=== PATIENT | female | born 1995 | race Caucasian/White ===

== ENCOUNTER 2016-10-01 18:52 | Emergency (ER) | payer OTHER ==
[2016-10-01] MEDS ORDERED: NS 1,000 ML IV ONE (19:21)
--- NOTE | 2016-10-01 19:21 | EDPHY ---
H & P Stated Complaint: N/V x 3 days;can't keep anxiety meds down Time Seen by Provider: 10/01/16 19:20 HPI/ROS: CHIEF COMPLAINT: Intractable nausea and vomiting HISTORY OF PRESENT ILLNESS: The patient presents to the ED with a 3 day history of intractable nausea and vomiting. The patient denies diarrhea. She denies cough or congestion. She did have an upper respiratory sinus type infection earlier in the month. The patient does have a remote history of an eating disorder but denies any ongoing problems with that condition. The patient does have a history of anxiety which she takes Zoloft for in the morning and Ativan as needed at night. She has been unable to keep these medications down over the past 3 days. The patient denies significant drug or alcohol use. She denies any complaints of back pain or dysuria. She has a mild epigastric pain. REVIEW OF SYSTEMS: A comprehensive 10 point review of systems is otherwise negative aside from elements mentioned in the history of present illness. Source: Patient Exam Limitations: No limitations - Personal History LMP (Females 10-55): Now Current Tetanus Diphtheria and Acellular Pertussis (TDAP): Yes - Medical/Surgical History Hx Asthma: No Hx Chronic Respiratory Disease: No Hx Diabetes: No Hx Cardiac Disease: No Hx Renal Disease: No Hx Cirrhosis: No Hx Alcoholism: No Hx HIV/AIDS: No Hx Splenectomy or Spleen Trauma: No Other PMH: TM tubes/EATING DISORDER. anxiety - Social History Smoking Status: Never smoked - Physical Exam Exam: General Appearance: Alert, no distress Eyes: Pupils equal and round no pallor or injection ENT, Mouth: Dry mucous membranes Respiratory: There are no retractions, lungs are clear to auscultation Cardiovascular: Slight tachycardia Gastrointestinal: Minimal epigastric tenderness Neurological: A&O, normal motor function, normal sensory exam, normal cranial nerves Skin: Warm and dry, no rashes Musculoskeletal: Neck is supple nontender Extremities: symmetrical, full range of motion Psychiatric: Patient is oriented X 3, there is no agitation Constitutional: Initial Vital Signs Heart Rate 106 H 10/01/16 18:53 Respiratory Rate 18 10/01/16 18:53 Blood Pressure 146/100 H 10/01/16 18:53 O2 Sat (%) 95 10/01/16 18:53 O2 Delivery Mode Room Air Allergies/Adverse Reactions: acetaminophen [From Tylenol] Allergy (Intermediate, Verified 10/01/16 18:56) hives/vomiting Home Medications: Medication Instructions Recorded Bcp 10/01/16 LORazepam [Ativan (*)] 1 mg PO 10/01/16 Propranolol HCl [Inderal 20mg (*)] 20 mg PO 10/01/16 Sertraline HCl [Zoloft 50mg (*)] 50 mg PO DAILY 10/01/16 Medical Decision Making ED Course/Re-evaluation: The patient presents to the emergency department with acute nausea and vomiting x3 days. The patient does have evidence of mild dehydration. She had an IV established. She received a L of normal saline. She received IV Zofran and 1 mg of IV Ativan. The patient's laboratory studies are within normal limits. The patient did have serial examinations in the ED by myself over 2 hour period. The patient had marked improvement of her symptoms. The patient will be discharged home with a prescription for Zofran. She is instructed to return to the ED for severe abdominal pain, intractable vomiting, fever or other concerns. Differential Diagnosis: Differential diagnosis considered includes cholecystitis, gastroenteritis, pancreatitis, dehydration, metabolic abnormality - Data Points Laboratory Results: Laboratory Results 10/01/16 19:05 10/01/16 19:05 10/01/16 19:05 WBC 7.51 10^3/uL (3.80-9.50) RBC 4.77 10^6/uL (4.18-5.33) Hgb 14.1 g/dL (12.6-16.3) Hct 42.4 % (38.0-47.0) MCV 88.9 fL (81.5-99.8) MCH 29.6 pg (27.9-34.1) MCHC 33.3 g/dL (32.4-36.7) RDW 13.9 % (11.5-15.2) Plt Count 306 10^3/uL (150-400) MPV 10.5 fL (8.7-11.7) Neut % (Auto) 57.8 % (39.3-74.2) Lymph % (Auto) 27.7 % (15.0-45.0) Dale % (Auto) 9.5 % (4.5-13.0) Eos % (Auto) 3.6 % (0.6-7.6) Baso % (Auto) 1.1 % (0.3-1.7) Nucleat RBC Rel Count 0.0 % (0.0-0.2) Absolute Neuts (auto) 4.35 10^3/uL (1.70-6.50) Absolute Lymphs (auto) 2.08 10^3/uL (1.00-3.00) Absolute Monos (auto) 0.71 10^3/uL (0.30-0.80) Absolute Eos (auto) 0.27 10^3/uL (0.03-0.40) Absolute Basos (auto) 0.08 10^3/uL (0.02-0.10) Absolute Nucleated RBC 0.00 10^3/uL (0-0.01) Immature Gran % 0.3 % (0.0-1.1) Immature Gran # 0.02 10^3/uL (0.00-0.10) Sodium 144 mEq/L (134-144) Potassium 3.4 L mEq/L (3.5-5.2) Chloride 105 mEq/L (97-110) Carbon Dioxide 24 mEq/l (22-31) Anion Gap 15 mEq/L (8-16) BUN 13 mg/dL (7-23) Creatinine 0.8 mg/dL (0.6-1.0) Estimated GFR > 60 Glucose 105 H mg/dL (70-100) Calcium 9.8 mg/dL (8.5-10.4) Total Bilirubin 0.7 mg/dL (0.1-1.4) Conjugated Bilirubin 0.3 mg/dL (0.0-0.5) Unconjugated Bilirubin 0.4 mg/dL (0.0-1.1) AST 29 IU/L (14-46) ALT 36 IU/L (9-52) Alkaline Phosphatase 112 IU/L (38-126) Total Protein 8.2 g/dL (6.3-8.2) Albumin 4.1 g/dL (3.5-5.0) Lipase 100.0 IU/L (23-300) Beta HCG, Qual NEGATIVE Medications Given: Discontinued Medications Sodium Chloride (Ns) 1,000 mls @ 0 mls/hr IV ONCE ONE PRN Reason: Wide Open Stop: 10/01/16 19:22 Last Admin: 10/01/16 19:26 Dose: 1,000 mls Lorazepam (Ativan Injection) 1 mg IVP EDNOW ONE Stop: 10/01/16 19:26 Last Admin: 10/01/16 19:34 Dose: 1 mg Departure - Departure Disposition: Home, Routine, Self-Care Clinical Impression: Acute gastroenteritis Condition: Good Instructions: Acute Nausea and Vomiting (ED) Additional Instructions: 1. Zofran as needed for nausea. 2. Please return to the ED for markedly worsening symptoms or other concerns. 3. Take Ibuprofen or Motrin 600 mg by mouth three times a day.
[2016-10-01] MEDS ORDERED: LORazepam 2 MG/ML INJ IVP ONE (19:25)
[2016-10-01 19:26] LABS: % IMMATURE GRANULYOCYTES 0.3 % (0.0-1.1); ABSOLUTE IMMATURE GRANULOCYTES 0.02 10^3/uL (0.00-0.10); ADD DIFF? NO; ADD MORPH? NO; ADD SCAN? NO; ATYPICAL LYMPHOCYTE FLAG 30 (0-99); FRAGMENT RBC FLAG 0 (0-99); HEMATOCRIT 42.4 % (38.0-47.0); HEMOGLOBIN 14.1 g/dL (12.6-16.3); LEFT SHIFT FLG 0 (0-99); LIPEMIA HEMOLYSIS FLAG 80 (0-99); MEAN CELL HEMOGLOBIN 29.6 pg (27.9-34.1); MEAN CELL HEMOGLOBIN CONCENTR. 33.3 g/dL (32.4-36.7); MEAN CELL VOLUME 88.9 fL (81.5-99.8); MEAN PLATELET VOLUME 10.5 fL (8.7-11.7); PLATELET CLUMPS FLAG 10 (0-99); PLATELET COUNT 306 10^3/uL (150-400); RED BLOOD CELL COUNT 4.77 10^6/uL (4.18-5.33); RED CELL DISTRIBUTION WIDTH 13.9 % (11.5-15.2)
[2016-10-01] MEDS ORDERED: LORazepam 2 MG/ML INJ ONE (19:29)
[2016-10-01 19:41] LABS: ALANINE AMINOTRANSFERASE 36 IU/L (9-52); ALBUMIN 4.1 g/dL (3.5-5.0); ALKALINE PHOSPHATASE 112 IU/L (38-126); ANION GAP 15 mEq/L (8-16); ASPARTATE AMINOTRANSFERASE 29 IU/L (14-46); BILIRUBIN,TOTAL 0.7 mg/dL (0.1-1.4); BILIRUBIN-CONJUGATED 0.3 mg/dL (0.0-0.5); BILIRUBIN-UNCONJUGATED 0.4 mg/dL (0.0-1.1); CALCIUM 9.8 mg/dL (8.5-10.4); CARBON DIOXIDE 24 mEq/l (22-31); CHLORIDE 105 mEq/L (97-110); CREATININE 0.8 mg/dL (0.6-1.0); GLOMERULAR FILTRATION RATE > 60; GLUCOSE 105 mg/dL (70-100); POTASSIUM 3.4 mEq/L (3.5-5.2); SODIUM 144 mEq/L (134-144); TOTAL PROTEIN 8.2 g/dL (6.3-8.2)
[2016-10-01 20:12] VITALS: BP 135/90; PULSE 104; RESP 16; O2SAT 97
[2016-10-01] MEDS ORDERED: ONDANSETRON 4MG PREPACK#2 BTL TAKEHOME ONE (20:19)
[2016-10-01 20:27] VITALS: TEMP 98.6
== END 2016-10-01 20:27 | disposition home or self-care (01) ==
DX: K52.9 Noninfective gastroenteritis and colitis, unspecified (principal)
CPT/HCPCS: 96374